=== PATIENT | male | born 1990 | race Caucasian/White ===

== ENCOUNTER 2018-10-19 17:19 | Emergency (ER) | payer MEDICAID ==
[~2018-10-19] VITALS: Ht 190.5 cm; Wt 79.0 kg
[2018-10-19 20:48] VITALS: BP 152/85
== END 2018-10-19 21:21 | disposition home or self-care (01) ==
LOC: ER 17:19
DX: Z00.8 Encounter for other general examination (principal)
CPT/HCPCS: 99281